=== PATIENT | female | born 1960 | race Caucasian/White ===

== ENCOUNTER 2016-08-27 12:26 | Emergency (ER) | payer OTHER ==
[~2016-08-27] VITALS: Ht 180.3 cm; Wt 93.0 kg
[~2016-08-27 12:26] MED LIST: FLEXERIL10 MG PO
[2016-08-27 12:44] VITALS: BP 121/77
--- NOTE | 2016-08-27 13:55 | RADIOLOGY REPORT ---
EXAMINATION: XR RIBS, LEFT CLINICAL INFORMATION: 56-year-old woman with pain post fall. COMPARISON: None TECHNIQUE: 2 views of the chest and 3 dedicated views of the left-sided ribs were obtained. FINDINGS: Lungs are clear. No consolidation, pneumothorax, or pleural effusion. The cardiomediastinal silhouette and pulmonary vasculature are normal. Osseous structures are unremarkable. Ribs are intact. No fractures are identified. IMPRESSION: No radiographic evidence of acute cardiothoracic injury or left-sided displaced rib fracture.
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
== END 2016-08-27 14:30 ==
LOC: ERH 12:26
DX: S20.212A Contusion of left front wall of thorax, initial encounter (principal); W10.9XXA Fall (on) (from) unspecified stairs and steps, initial encounter
CPT/HCPCS: 71100-LT